=== PATIENT | male | born 1960 | race Caucasian/White ===

== ENCOUNTER 2018-12-01 11:13 | Inpatient (IN) | payer OTHER ==
[2018-12-01] MEDS ORDERED: morphine CARPU-JECT 4 MG/1 ML DISP.SYRIN IVPUSH ONE (12:11)
[2018-12-01] MEDS ORDERED: SODIUM CHLORIDE 0.9% 500 ML INFUS.BAG IV ONE (12:12)
--- NOTE | 2018-12-01 12:21 | PDOC ---
History of Present Illness - General Chief Complaint: Injury Stated Complaint: FALL, R/O FX Time Seen by Provider: 12/01/18 11:59 History Source: Patient Exam Limitations: No Limitations - History of Present Illness Initial Comments: 12/01/18 12:14 58YOM with unknown PMH (estranged from the medical system for more than 15 years ) who p/w right ankle injury sustained when he fell on the stairs while drinking EtOH early this morning at 2am. He notes having severe pain to the ankle (8/10 at rest and worse with movement). He has not been able to walk or bear weight since that time. He did not hit head head, hurt his neck, lose consciousness, or otherwise injure himself in any additional way as a result of the fall. He denies recent f/c/n/v/d/c, n/t/w, or other symptoms. Last PO intake was last night. He was BIBEMS who donned an ice pack. He has not taken medication for the pain. Past History - Past Medical History Allergies/Adverse Reactions: Allergies Allergy/AdvReac Type Severity Reaction Status Date / Time No Known Allergies Allergy Verified 12/01/18 12:00 Home Medications: Ambulatory Orders Hydrocodone/Acetaminophen [Hydrocodone-Acetamin 5-325 mg] 1 - 2 each PO Q6H #40 tablet MDD 6 12/02/18 Amlodipine Besylate [Norvasc -] 5 mg PO DAILY 30 Days #30 tablet 12/03/18 COPD: No - Suicide/Smoking/Psychosocial Hx Smoking History: Never smoked Hx Alcohol Use: Yes Review of Systems - Review of Systems Able to Perform ROS?: Yes Comments:: 12/01/18 12:21 GEN: no fever, chills, malaise, generalized weakness, or weight change HEENT: no ear pain, sore throat, vision change, or eye pain CV: no chest pain, palpitations, lightheadedness, syncope, or edema RESP: no cough, wheezing, or SOB GI: no abdominal pain, nausea, vomiting, diarrhea, constipation, or white/black/ bloody stool : no dysuria, hematuria, incontinence, retention, bleeding, or discharge MSK: right ankle pain/swelling/deformity, no neck/back pain, muscle weakness/ pain, or joint swelling/pain NEURO: no headache, seizure, vertigo, numbness, tingling, or focal weakness PSYCH: no substance use, no behavior change SKIN: no jaundice, no rash ROS otherwise negative except as noted in HPI *Physical Exam - Vital Signs Last Vital Signs Temp Pulse Resp BP Pulse Ox 98.6 F 84 18 163/101 H 100 12/01/18 12:00 12/01/18 12:00 12/01/18 12:00 12/01/18 12:00 12/01/18 12:00 - Physical Exam Comments: 12/01/18 12:18 GEN: appears a bit uncomfortable, accompanied by family, answers questions appropriately HEENT: no obvious facial deformity, no cephalohematoma, no scalp laceration, no raccoon eyes, no proptosis, PERRLA, EOMI without pain, no nasal septal hematoma , no obvious CSF rhinorrhea, no epistaxis, no jaw malocclusion, no loose teeth, no treadwell sign, no hemotympanum, no obvious CSF otorrhea CHEST WALL: no flail chest, no costal stepoff or deformity, no bruises or lesions CARDIOVASCULAR: regular rhythm, normal S1S2, no MGR, capillary refill <2 seconds RESPIRATORY: symmetric chest expansion on inspiration, no increased WOB, no cyanosis ABDOMEN: abdomen soft, nondistendedd, nontender, pelvis stable EXTREMITIES: right ankle with significant swelling and ecchymosis medially with bony deformity distally but without skin tinting, pain in medial malleolar zone , tenderness to edge of medial malleolus, inability to bear weight or walk, able to move toes distally and full digit strength, neurovascularly intact NECK&BACK: no neck or back hematoma, no midline vertebral tenderness C/T/L spine , no spinal step-off or deformity, no paraspinous ttp CTL spine NEURO: good rectal tone, no saddle anesthesia,CN II-XII grossly intact, 5/5 strength and intact sensation throughout : no blood at the urethral meatus, normal external genitalia, no CVA tenderness SKIN: warm and dry, no pallor, no additional lacerations except as noted in Extremity section, no abrasions Heart Score/ECG Review #1 Sinus rhythm, rate 97, normal axis and intervals, no ST-T changes ED Treatment Course - LABORATORY CBC & Chemistry Diagram: 12/03/18 06:50 12/03/18 06:50 - RADIOLOGY Radiology Studies Ordered: Category Date Time Status ANKLE & FOOT-RIGHT* [RAD] Stat Radiology 12/01/18 12:12 Ordered Medical Decision Making - Medical Decision Making 12/01/18 12:17 Pt p/w right ankle pain/swelling worsening since an injury to the area from falling on stairs, as well as ankle deformity. Initial Vital Signs Temp Pulse Resp BP Pulse Ox 98.6 F 84 18 163/101 H 100 12/01/18 12:00 12/01/18 12:00 12/01/18 12:00 12/01/18 12:00 12/01/18 12:00 Exam: As noted in in Physical Exam section. DDX IBNLT: fracture, dislocation, ankle sprain/strain, tendon or ligament rupture/tear, contusion, blood vessel injury, nerve injury, etc. W/U ordered: ankle/foot XR, labs as noted below, EKG TX ordered: Morphine, Ofirmev Laboratory Tests 12/01/18 12/01/18 12/01/18 12:30 12:30 12:30 WBC 9.8 RBC 5.36 Hgb 15.7 Hct 46.2 MCV 86.1 MCH 29.3 MCHC 34.0 RDW 14.0 Plt Count 194 MPV 9.8 Absolute Neuts (auto) 6.9 Neutrophils % 69.8 Lymphocytes % 24.1 Monocytes % 4.6 Eosinophils % 1.0 Basophils % 0.5 Nucleated RBC % 0 PT with INR 12.10 INR 1.03 PTT (Actin FS) 30.2 Sodium 140 Potassium 3.8 Chloride 107 Carbon Dioxide 22 Anion Gap 11 BUN 8 Creatinine 0.5 L Creat Clearance w eGFR 171.39 Random Glucose 129 H Calcium 8.2 L Total Bilirubin 0.2 AST 102 H ALT 130 H Alkaline Phosphatase 127 H Total Protein 8.4 H Albumin 3.8 Blood Type Antibody Screen 12/01/18 12:30 WBC RBC Hgb Hct MCV MCH MCHC RDW Plt Count MPV Absolute Neuts (auto) Neutrophils % Lymphocytes % Monocytes % Eosinophils % Basophils % Nucleated RBC % PT with INR INR PTT (Actin FS) Sodium Potassium Chloride Carbon Dioxide Anion Gap BUN Creatinine Creat Clearance w eGFR Random Glucose Calcium Total Bilirubin AST ALT Alkaline Phosphatase Total Protein Albumin Blood Type O POSITIVE Antibody Screen Negative 12/01/18 13:53 FOOT-RIGHT* Right foot and ankle: Ankle deformity. Pain. 4 views of the ankle and foot have been submitted. A widened mortise with medial malleolar fracture and distal fibular fracture. A posterior malleolar fracture is not appreciated. In the lateral view, there is widening of the joint space between the talus and tibia. There is calcaneal spurring. No other fractures are visualized. Impression: Fracture dislocation involving right ankle. Orthopedic follow-up needed. I spoke with [facility]ad who will come to the ED for ankle reduction. Patient will go to the OR tomorrow. 12/01/18 14:59 Conscious sedation achieved with ketamine while on monitor. Ankle reduced and splinted by Ortho OFE Prasad, myself assisting. Patient tolerated the procedure well, post-reduction films show improvement. The patient needs to go to OR tomorrow. Microblog sent to [facility] for admission. Blank Decision to Admit order is placed per ED protocol. On-call orthopedist consult order placed. *DC/Admit/Observation/Transfer Diagnosis at time of Disposition: Fall (on) (from) other stairs and steps, initial encounter Trimalleolar fracture of right ankle Qualifiers: Encounter type: initial encounter Fracture type: closed Qualified Code(s): S82.851A - Displaced trimalleolar fracture of right lower leg, initial encounter for closed fracture - Discharge Dispostion Disposition: HOME Condition at time of disposition: Good Decision to Admit order: Yes - Referrals - Patient Instructions - Post Discharge Activity
[2018-12-01] MEDS ORDERED: morphine SULFATE 4 MG/ML VIAL ONE (12:31)
[2018-12-01] MEDS ORDERED: ONDANSETRON 4 MG/2 ML VIAL IVPUSH ONE (12:51)
[2018-12-01 12:53] LABS: BASO % 0.5 % (0-2.0); HEMATOCRIT 46.2 % (35.4-49); HEMOGLOBIN 15.7 GM/dL (11.7-16.9); LYMPH % 24.1 % (8-40); MCH 29.3 pg (25.7-33.7); MEAN CELL VOLUME 86.1 fl (80-96); MEAN PLT VOLUME 9.8 fl (7.5-11.1); MONO % 4.6 % (3.8-10.2); NEUT % 69.8 % (42.8-82.8); PLATELET COUNT 194 K/MM3 (134-434); RBC 5.36 M/mm3 (4.00-5.60); WHITE BLOOD COUNT 9.8 K/mm3 (4.0-10.0)
--- NOTE | 2018-12-01 13:00 | PDOC ---
Attending Attestation - Resident Resident Name: Allison Freeman - ED Attending Attestation I have performed the following: I have examined & evaluated the patient, The case was reviewed & discussed with the resident, I agree w/resident's findings & plan, Exceptions are as noted - HPI HPI: 12/01/18 12:54 The patient is a 58 year old male with no known medial history who presents to the ED with pain to the right ankle s/p injury sustained when he twisted his ankle on the stairs while drinking EtOH early this morning at 2am. He reports 10 /10 pain to the ankle which is exacerbated with movement. He states he has not been able to bear weight since the injury. He denies head trauma or LOC. The patient denies chest pain, shortness of breath, headache and dizziness. The patient denies fever, chills, nausea, vomit, diarrhea and constipation. The patient denies dysuria, frequency, urgency and hematuria. Allergies: NKDA - Physicial Exam PE: 12/01/18 13:00 GENERAL: Awake, alert, and fully oriented, in no acute distress. HEAD: No signs of trauma EYES: PERRLA, EOMI, sclera anicteric, conjunctiva clear ENT: Auricles normal inspection, hearing grossly normal, nares patent, oropharynx clear without exudates. Moist mucosa NECK: Nontender, no stepoffs, Normal ROM, supple, no lymphadenopathy, JVD, or masses LUNGS: Breath sounds equal, clear to auscultation bilaterally. No wheezes, and no crackles HEART: Regular rate and rhythm, normal S1 and S2, no murmurs, rubs or gallops ABDOMEN: Soft, nontender, normoactive bowel sounds. No guarding, no rebound. No masses EXTREMITIES: + R ankle with significant deformity and effusion, ROM limited 2/2 pain, neurovascularly intact distally NEUROLOGICAL: Cranial nerves II through XII intact. 5/5 strength and sensation in all extremities, Normal speech, normal gait, normal cerebellar function SKIN: Warm, Dry, normal turgor, no rashes or lesions noted. - Medical Decision Making 12/01/18 13:01 58 M with R ankle deformity after twisting it. Likely ankle fx. No evidence of other injury on exam. - XR R ankle - Labs - Pain control 12/01/18 14:25 XR with valentina fx with dislocation Ortho consulted, OFE wiggins in ED to evaluate pt
[2018-12-01] MEDS ORDERED: ONDANSETRON 4 MG/2 ML VIAL ONE (13:10)
[2018-12-01 13:47] LABS: ALBUMIN 3.8 g/dl (3.4-5.0); ALK PHOS 127 U/L (45-117); ANION GAP 11 MMOL/L (8-16); BILIRUBIN,TOTAL 0.2 mg/dL (0.2-1); BLOOD UREA NITROGEN 8 mg/dL (7-18); CALCIUM 8.2 mg/dL (8.5-10.1); CHLORIDE 107 mmol/L (98-107); CO2 22 mmol/L (21-32); CREATININE 0.5 mg/dL (0.55-1.3); GLUCOSE,RANDOM 129 mg/dL (74-106); POTASSIUM 3.8 mmol/L (3.5-5.1); SGOT/AST 102 U/L (15-37); SGPT/ALT 130 U/L (13-61); SODIUM 140 mmol/L (136-145); TOT PROT 8.4 g/dl (6.4-8.2)
[2018-12-01 13:52] LABS: ACTIVATED PTT 30.2 SECONDS (25.2-36.5); INR 1.03 (0.83-1.09); PROTHROMBIN TIME (PATIENT) 12.1 SEC (9.7-13.0)
[2018-12-01] MEDS ORDERED: KETAMINE HCL 500 MG/10 ML VIAL ONE (14:31)
--- NOTE | 2018-12-01 15:07 | CON.ORTH ---
Consult Reason for Consultation:: right anklr fx/dl - Alcohol/Substance Use Hx Alcohol Use: Yes - Smoking History Smoking history: Never smoked Home Medications - Allergies Allergies/Adverse Reactions: Allergies Allergy/AdvReac Type Severity Reaction Status Date / Time No Known Allergies Allergy Verified 12/01/18 12:00 Physical Exam for Ortho Vital Signs: Vital Signs Temperature 98.6 F 12/01/18 12:00 Pulse Rate 84 12/01/18 12:00 Respiratory Rate 18 12/01/18 12:00 Blood Pressure 163/101 H 12/01/18 12:00 O2 Sat by Pulse Oximetry (%) 100 12/01/18 12:00 Labs: CBC, BMP 12/01/18 12:30 12/01/18 12:30 INR, PTT INR 1.03 (0.83-1.09) 12/01/18 12:30 - Lower Extremity Ankle: Yes: Right, Assymetrical, Deformity, Limited ROM, Pain, Swelling, Tenderness, Other (nvi) Imaging - Results X-ray: Image Reviewed Assessment/Plan 58YOM with unknown PMH (estranged from the medical system for more than 15 years ) who p/w right ankle injury sustained when he fell on the stairs while drinking EtOH early this morning at 2am. He notes having severe pain to the ankle (8/10 at rest and worse with movement). He has not been able to walk or bear weight since that time. He did not hit head head, hurt his neck, lose consciousness, or otherwise injure himself in any additional way as a result of the fall. He denies recent f/c/n/v/d/c, n/t/w, or other symptoms. a/p right ankle displaced valentina fx/dislocation Risks and benefits were d/w pt in detail OR tomorrow for right ankle ORIF closed reduction and splinting in ER NPO after midnight surgical clearance d/w Dr. Tejeda
[2018-12-01] MEDS ORDERED: KETAMINE HCL 200 MG/20 ML VIAL IVPUSH ONE (15:24)
[2018-12-01] MEDS ORDERED: NOREPINEPHRINE BITARTRATE 4 MG/4 ML ML IV ONE (16:18)
[2018-12-01] MEDS ORDERED: FOLIC ACID INJECTION - 1 MG, THIAMINE HCL 100 MG, MULTIVIT INJECTION ADULT 10 ML in SOD... IVPB ONE (16:45)
--- NOTE | 2018-12-01 16:46 | PN ---
Teaching Attending Note Name of Resident: Bay Strong ATTENDING PHYSICIAN STATEMENT I saw and evaluated the patient. I reviewed the resident's note and discussed the case with the resident. I agree with the resident's findings and plan as documented. SUBJECTIVE:58 yo M with no known PMH (has not seen PMD in 10+ years) presented after mechanical fall down the basement steps. pt states he has been drinking and that he "drink a lot" and thinks he just lost his balance. does not believe he struck his head. states he lives in the basement of his familys house. c/o R foot. denies CP, SOB, fever, chills, N/V/C/D, dizzyness, auditory/visual hallucinations. states he has never gone through DT's in the past but does not recall the last time he didnt drink. OBJECTIVE: Last Vital Signs Temp Pulse Resp BP Pulse Ox 98.6 F 92 H 18 183/101 H 97 12/01/18 12:00 12/01/18 16:08 12/01/18 16:08 12/01/18 16:08 12/01/18 16:08 General NAD, HEENT atraumatic, normocephalic, +nystagmus CV S1 S2 tachy Lungs CTA B/L no wheezing/rales/rhonchi Abdomen soft NT/ND obese, can not palpate liver edge Extremities R foot in soft cast, can wiggle toes. LLE no pedal edema good pulse , slight tremor with hands extended ASSESSMENT AND PLAN: 58 yo M with no known PMH (has not seen PMD in 10+ years) presented after mechanical fall down the basement steps and found to have a bimalleolar fracture 1. R ankle bimalleolar fracture- closed reduction in the ER and NPO tonight for ORIF in the am. further recommendations per ortho. complete bedrest at this time. pain control. PT eval afterwards. 2. acute transaminitis- likely due to ETOH. will check hepatitis panel. trend LFT. avoid hepatoxic medications 3. ETOH intoxication- currently intoxicated. high likelihood will require detox. will monitor for signs of withdrawal and then start librium. give banana bag. not a candidate for inpatient rehab when medically optimzied as patient does not have insurance. will need to provide with outpatient resources 4. DVT ppx- lovenox. hold tonights dose for pending surgery in the AM 5. spoke with family present at bedside. all questions answered. verbalized understanding and agrees. Pt does not have insurance and will not be a candidate for [facility] placement. CM notified. will also need to establish primary care prior to discharge
--- NOTE | 2018-12-01 18:01 | HP ---
CHIEF COMPLAINT: rt ankle pain s/p fall PCP: none HISTORY OF PRESENT ILLNESS: The patient is a 58 yo m w/ no PMH who comes into the ED c/o rt ankle pain and inability to stand on his right ankle s/p fall this afternoon. The patient states that he was drinking ETOH when he fell down a flight of stairs, injuring his ankle. Patient denies LOC, head trauma or pain in any other part of his body. The patient states that he drank approx. 10 shots and 20 beers yesterday because he was "tired." Typically, patient states that he drinks 2-3 shots per week. He denies ever having withdrawn from ETOH. Patient has not seen a doctor for several years. ER course was notable for: (1) XR ankle showing trimalleolar fx (2) dislocation reduced in ED w/ assistance of ortho PA (3) Ortho consult Recent Travel: none PAST MEDICAL HISTORY: none PAST SURGICAL HISTORY: none Social History: Smoking: none Alcohol: typically drinks Drugs: denies Family History: non-contributory Allergies No Known Allergies Allergy (Verified 12/01/18 12:00) HOME MEDICATIONS: REVIEW OF SYSTEMS CONSTITUTIONAL: Absent: fever, chills, diaphoresis, generalized weakness, malaise, loss of appetite, weight change HEENT: Absent: rhinorrhea, nasal congestion, throat pain, throat swelling, difficulty swallowing, mouth swelling, ear pain, eye pain, visual changes CARDIOVASCULAR: Absent: chest pain, syncope, palpitations, irregular heart rate, lightheadedness , peripheral edema RESPIRATORY: Absent: cough, shortness of breath, dyspnea with exertion, orthopnea, wheezing, stridor, hemoptysis GASTROINTESTINAL: Absent: abdominal pain, abdominal distension, nausea, vomiting, diarrhea, constipation, melena, hematochezia GENITOURINARY: Absent: dysuria, frequency, urgency, hesitancy, hematuria, flank pain, genital pain MUSCULOSKELETAL: Absent: myalgia, arthralgia, back pain, neck pain SKIN: Absent: rash, itching, pallor HEMATOLOGIC/IMMUNOLOGIC: Absent: easy bleeding, easy bruising, lymphadenopathy, frequent infections ENDOCRINE: Absent: unexplained weight gain, unexplained weight loss, heat intolerance, cold intolerance NEUROLOGIC: Absent: headache, focal weakness or paresthesias, dizziness, unsteady gait, seizure, mental status changes, bladder or bowel incontinence PSYCHIATRIC: Absent: anxiety, depression, suicidal or homicidal ideation, hallucinations. PHYSICAL EXAMINATION Vital Signs - 24 hr 12/01/18 12/01/18 12/01/18 12:00 14:35 14:55 Temperature 98.6 F Pulse Rate 84 Pulse Rate [ 103 H Apical] Pulse Rate [ 88 103 H Right Upper Arm ] Respiratory 18 16 Rate Respiratory 18 16 Rate [Right Upper Arm] Blood Pressure 163/101 H Blood Pressure 188/111 H [Right Arm] Blood Pressure 162/95 188/111 H [Right Upper Arm] O2 Sat by Pulse 100 99 Oximetry (%) O2 Sat by Pulse 100 99 Oximetry (%) [ Right Upper Arm ] 12/01/18 12/01/18 12/01/18 15:00 15:05 15:28 Temperature Pulse Rate Pulse Rate [ 98 H 93 H Apical] Pulse Rate [ 92 H Right Upper Arm ] Respiratory 13 13 Rate Respiratory 18 Rate [Right Upper Arm] Blood Pressure Blood Pressure 182/111 H 186/110 H [Right Arm] Blood Pressure 141/103 H [Right Upper Arm] O2 Sat by Pulse 100 98 Oximetry (%) O2 Sat by Pulse 95 Oximetry (%) [ Right Upper Arm ] 12/01/18 16:08 Temperature Pulse Rate Pulse Rate [ 92 H Apical] Pulse Rate [ Right Upper Arm ] Respiratory 18 Rate Respiratory Rate [Right Upper Arm] Blood Pressure Blood Pressure 183/101 H [Right Arm] Blood Pressure [Right Upper Arm] O2 Sat by Pulse 97 Oximetry (%) O2 Sat by Pulse Oximetry (%) [ Right Upper Arm ] GENERAL: Awake, alert, and fully oriented, in no acute distress. HEAD: Normal with no signs of trauma. LUNGS: Breath sounds equal, clear to auscultation bilaterally. No wheezes, and no crackles. No accessory muscle use. HEART: Regular rate and rhythm, normal S1 and S2 without murmur, rub or gallop. ABDOMEN: Soft, nontender, not distended, normoactive bowel sounds, no guarding, no rebound, no masses. No hepatomegaly or splenomegaly. LOWER EXTREMITIES: 2+ pulses, warm, well-perfused. No calf tenderness. No peripheral edema. RLE wrapped in soft splint from toes to midway up calf. NEUROLOGICAL: Cranial nerves II-X intact. Normal speech. Patient neurovascularly intact over both LE. Sensation preserved SKIN: Warm, dry, normal turgor, no rashes or lesions noted, normal capillary refill. Laboratory Results - last 24 hr 12/01/18 12/01/18 12/01/18 12:30 12:30 12:30 WBC 9.8 RBC 5.36 Hgb 15.7 Hct 46.2 MCV 86.1 MCH 29.3 MCHC 34.0 RDW 14.0 Plt Count 194 MPV 9.8 Absolute Neuts (auto) 6.9 Neutrophils % 69.8 Lymphocytes % 24.1 Monocytes % 4.6 Eosinophils % 1.0 Basophils % 0.5 Nucleated RBC % 0 PT with INR 12.10 INR 1.03 PTT (Actin FS) 30.2 Sodium 140 Potassium 3.8 Chloride 107 Carbon Dioxide 22 Anion Gap 11 BUN 8 Creatinine 0.5 L Creat Clearance w eGFR 171.39 Random Glucose 129 H Calcium 8.2 L Total Bilirubin 0.2 AST 102 H ALT 130 H Alkaline Phosphatase 127 H Total Protein 8.4 H Albumin 3.8 Blood Type Antibody Screen 12/01/18 12:30 WBC RBC Hgb Hct MCV MCH MCHC RDW Plt Count MPV Absolute Neuts (auto) Neutrophils % Lymphocytes % Monocytes % Eosinophils % Basophils % Nucleated RBC % PT with INR INR PTT (Actin FS) Sodium Potassium Chloride Carbon Dioxide Anion Gap BUN Creatinine Creat Clearance w eGFR Random Glucose Calcium Total Bilirubin AST ALT Alkaline Phosphatase Total Protein Albumin Blood Type O POSITIVE Antibody Screen Negative ASSESSMENT/PLAN: The patient is a 58 yo m w/ no PMH who comes into the ED c/o right ankle pain s/ p fall found to have right ankle trimalleolar fx. #Rt ankle trimalleolar fx -seen by ortho in ED; Fx reduced -for ORIF in AM -pain control: -Percocet 5 pn 1-5 -Percocet 10 pn 6-10 #ETOH abuse -baseline amount of drinking unclear -monitor for withdrawal ssx -initiate detox protocol of patient begins to withdraw #elevated BP -possibly 2/2 pain -patient may have HTN since he does not follow with a PCP -will begin Norvasc 5mg daily in the AM #FEN -no fluids indicated -lytes WNL, replete PRN -NPO past midnight for ORIF in AM #Prophy -cannot place SCDs given ankle injury -holding AC due to ORIF in AM #Dispo -admit med surg Visit type - Emergency Visit Emergency Visit: Yes ED Registration Date: 12/01/18 Care time: The patient presented to the Emergency Department on the above date and was hospitalized for further evaluation of their emergent condition. - New Patient This patient is new to me today: Yes Date on this admission: 12/02/18 - Critical Care Critical Care patient: No
[2018-12-01] MEDS ORDERED: ACETAMINOPHEN 325 MG TABLET (FP) PO PRN ×2 (18:02→18:03)
[2018-12-01] MEDS ORDERED: oxyCODONE HCL 5 MG TABLET PO PRN ×2 (18:02→18:03)
[2018-12-01 19:04] VITALS: BMI 25.5
--- NOTE | 2018-12-01 21:49 | EKG ---
Test Reason : Blood Pressure : / mmHG Vent. Rate : 097 BPM Atrial Rate : 097 BPM P-R Int : 142 ms QRS Dur : 080 ms QT Int : 360 ms P-R-T Axes : 033 033 030 degrees QTc Int : 457 ms POOR DATA QUALITY, INTERPRETATION MAY BE ADVERSELY AFFECTED NORMAL SINUS RHYTHM NORMAL ECG NO PREVIOUS ECGS AVAILABLE Confirmed by MD VALENTINA, PARIS ([id number]) on 12/01/2018 9:49:10 PM Referred By: Confirmed By:PARIS MONTGOMERY MD
[2018-12-02 07:25] LABS: HEMATOCRIT 41.4 % (35.4-49); HEMOGLOBIN 14.3 GM/dL (11.7-16.9); MCH 29.8 pg (25.7-33.7); MCHC 34.5 g/dl (32.0-35.9); MEAN CELL VOLUME 86.5 fl (80-96); MEAN PLT VOLUME 9.9 fl (7.5-11.1); PLATELET COUNT 171 K/MM3 (134-434); RBC 4.79 M/mm3 (4.00-5.60); RDW 14.1 % (11.9-15.9); WHITE BLOOD COUNT 10.9 K/mm3 (4.0-10.0)
[2018-12-02 07:36] LABS: ANION GAP 6 MMOL/L (8-16); BLOOD UREA NITROGEN 7 mg/dL (7-18); CALCIUM 8.1 mg/dL (8.5-10.1); CHLORIDE 107 mmol/L (98-107); CO2 30 mmol/L (21-32); CREATININE 0.7 mg/dL (0.55-1.3); GLUCOSE,RANDOM 117 mg/dL (74-106); MAGNESIUM 2.2 mg/dL (1.8-2.4); PHOSPHOROUS 1.8 mg/dL (2.5-4.9); POTASSIUM 3.9 mmol/L (3.5-5.1); SODIUM 142 mmol/L (136-145)
[2018-12-02 08:26] LABS: INR 1.11 (0.83-1.09); PROTHROMBIN TIME (PATIENT) 13.1 SEC (9.7-13.0)
[2018-12-02 08:29] LABS: ACTIVATED PTT 36.5 SECONDS (25.2-36.5)
[2018-12-02] MEDS ORDERED: POTASSIUM PHOSPHATE 30 MM in SODIUM CHLORIDE 500 ML IVPB ONE (09:00)
[2018-12-02] MEDS ORDERED: amLODIPine BESYLATE 5 MG TABLET (FP) PO SCH (10:00)
[2018-12-02] MEDS ORDERED: LACTATED RINGERS SOLUTION 1,000 ML IV SCH ×2 (10:45→13:46)
[2018-12-02] MEDS ORDERED: BUPIVACAINE HCL/PF 0.5% (5MG/ML) 10 ML VIAL ONE ×2 (11:14→12:00)
[2018-12-02] MEDS ORDERED: BUPIVACAINE LIPOSOME/PF (EXPAREL) 266 MG/20 ML VIAL ONE (11:14)
[2018-12-02] MEDS ORDERED: MIDAZOLAM HCL 2 MG/2 ML SINGLE DOSE VIAL ONE ×2 (11:16)
[2018-12-02] MEDS ORDERED: ceFAZolin SODIUM 1 GM VIAL IVPB ONE (12:15)
[2018-12-02] MEDS ORDERED: ceFAZolin SODIUM 1 GM VIAL ONE (12:21)
[2018-12-02] MEDS ORDERED: DEXAMETHASONE SOD PHOSPHATE 4 MG/1 ML VIAL ONE (12:23)
[2018-12-02] MEDS ORDERED: ONDANSETRON 4 MG/2 ML VIAL ONE (12:26)
[2018-12-02] MEDS ORDERED: ePHEDrine SULFATE 50 MG/1 ML AMPULE ONE (12:48)
--- NOTE | 2018-12-02 13:27 | OP ---
Operative Note - Note: Operative Date: 12/02/18 Pre-Operative Diagnosis: displaced right ankle bimalleolar fracture Operation: right ankle bimalleolar ORIF Implants: [place] low profile, titanium, distal fibular plate, screws, 1 x connulated screw with washer 50mm Post-Operative Diagnosis: Same as Pre-op Surgeon: Gonzales Tejeda Check And Transfer Beader: Osmar Weaver Anesthesiologist/INSULATION BOARD COATER OPERATOR: Yuval Michael Anesthesia: General, Local Estimated Blood Loss (mls): 0 Drains, Volume Out (mls): 0 Blood Volume Replaced (mls): 0 Fluid Volume Replaced (mls): 1,000 Operative Report Dictated: Yes
[2018-12-02] MEDS ORDERED: oxyCODONE HCL 5 MG TABLET PO PRN ×2 (13:46)
[2018-12-02] MEDS ORDERED: ACETAMINOPHEN 325 MG TABLET (FP) PO PRN ×2 (13:46)
--- NOTE | 2018-12-02 14:39 | OP ---
DATE OF OPERATION: 12/02/2018 PREOPERATIVE DIAGNOSIS: Right ankle bimalleolar ankle fracture. POSTOPERATIVE DIAGNOSIS: Right ankle bimalleolar ankle fracture. PROCEDURE: Right ankle bimalleolar open reduction, internal fixation. SURGEON: Roberto Gay MD MANAGER EDUCATIONAL: OFE Ta ANESTHESIOLOGIST: MARY CARMEN Muñiz ANESTHESIA: Peripheral block with LMA anesthesia. DRAINS: None. COMPLICATIONS: None. SPECIMEN: None. BLOOD LOSS: Minimal. BLOOD GIVEN: None. FLUID REPLACEMENT: Plasma-Lyte, 1000 mL. This patient is a 58-year-old male with a preoperative diagnosis of a displaced bimalleolar right ankle fracture. After understanding the potential risks, complications, alternatives and benefits of surgery versus nonsurgical treatment the patient elected to undergo this procedure. The patient was brought to the operating room. Peripheral IV placed. IV sedation given. IV Ancef 2 g were given. A right distal peripheral block was performed. LMA anesthesia was induced. The right lower extremity was prepped and draped in a sterile fashion, elevated, exsanguinated with an Esmarch bandage. Tourniquet inflated to 275 mmHg. A lateral incision was made over the distal fibula with a No. 15 scalpel blade. Hemostasis was achieved with the Bovie cautery. Dissection done down to the periosteum of the distal fibula. Periosteal dissection was done. Irrigation and a small curet were used clean out the fracture site of hematoma and soft tissue debris including some periosteum. I was then able to do a reduction with an alligator forceps. X-rays were taken to document excellent position of the distal fibula as well as the ankle mortise. Next I put in a lag screw in the standard fashion. This was a 3.5-mm diameter screw that was 18 mm in length perpendicular to the fracture site, held the distal fibula well. The alligator clamps were removed. X-rays were taken. A 4-hole distal low-profile titanium Wayne plate was placed on to the distal fibula. It was precontoured. It was held in place with 2 K-wires. X-rays were taken. It looked quite good. Therefore, in the standard fashion first I put in 4 distal screws all unicortical and locking and then 1 proximal screw which was bicortical and nonlocking in compression mode. X-rays were taken and they all looked quite good. The screw was 14 mm in length. I then put in 2 additional bicortical proximal screws that were 12 and 12 mm in length. These were locking screws. X-rays were taken. Next our attention turned to the medial side. An incision was made with a No. 15-scalpel blade. Subcutaneous hemostasis achieved with the Bovie cautery. Dissection done down to the distal medial malleolus. The fracture was a little unusual in the sense that the fracture line was going from an anterior-superior to a posterior-inferior position and was exactly 90 degrees to the typical fracture pattern. Therefore, to get the screw as perpendicular to the fracture site as possible I had to bring my hand all the way over the foot and just as far as I could until I was hitting up against the navicular. A partially threaded guidewire was placed through the fracture fragment across the fracture site into the tibia. Multiple x-rays were taken. It looked quite good and not in the ankle joint. I then measured a 50-mm screw. It was overdrilled distally and I put in a partially threaded cannulated 4.0, 50-mm screw with a washer. It brought the medial malleolus down quite nicely. The pin and clamp were removed that held it in place. X-rays were taken in multiple oblique as well as the AP and lateral planes. Overall, it was quite good. Both incisions were irrigated and washed out. The fascia closed over the plate laterally with 2-0 Vicryl. The deep dermal layer closed with 2-0 Vicryl. Final skin reapproximation was done with danitza. The area was then washed and dried, covered with Xeroform gauze, 4 x 4 gauze, Webril and a posterior splint. Ortho-Glass splint was applied, wrapped with 2 Sohail bandages. The tourniquet was taken down after a total tourniquet time of about 50 minutes. There were no complications during the case. The patient tolerated the procedure quite well and was brought to the ambulatory recovery room in stable condition. ROBERTO GAY M.D. [id number]
--- NOTE | 2018-12-02 17:48 | PN ---
Physical Exam: SUBJECTIVE: Patient seen and examined at bedside. POD0 R ankle bimalleolar ORIF. no complaints or complications. denies fever, chills, cp, sob, n/v/d OBJECTIVE: Vital Signs Period Temp Pulse Resp BP Sys/Wilson Pulse Ox Last 24 Hr 97.9 F-98.8 F 68-86 11-20 111-172/70-96 96-99 GENERAL: Awake, alert, and fully oriented, in no acute distress. HEAD: Normal with no signs of trauma. LUNGS: Breath sounds equal, clear to auscultation bilaterally. No wheezes, and no crackles. No accessory muscle use. HEART: Regular rate and rhythm, normal S1 and S2 without murmur, rub or gallop. ABDOMEN: Soft, nontender, not distended, normoactive bowel sounds, no guarding, no rebound, no masses. No hepatomegaly or splenomegaly. EXTREMITIES: 2+ pulses, warm, well-perfused. No tremors. No calf tenderness. No peripheral edema. RLE wrapped in bandage from toes to midway up calf. NEUROLOGICAL: Cranial nerves II-X intact. Normal speech. Patient neurovascularly intact over both LE. Sensation preserved SKIN: Warm, dry, normal turgor, no rashes or lesions noted, normal capillary refill. Laboratory Results - last 24 hr 12/01/18 12/02/18 12/02/18 18:00 07:00 07:00 WBC 10.9 H RBC 4.79 Hgb 14.3 Hct 41.4 MCV 86.5 MCH 29.8 MCHC 34.5 RDW 14.1 Plt Count 171 MPV 9.9 PT with INR 13.10 H INR 1.11 H PTT (Actin FS) 36.5 Sodium Potassium Chloride Carbon Dioxide Anion Gap BUN Creatinine Creat Clearance w eGFR Random Glucose Calcium Phosphorus Magnesium Blood Type O POSITIVE 12/02/18 07:00 WBC RBC Hgb Hct MCV MCH MCHC RDW Plt Count MPV PT with INR INR PTT (Actin FS) Sodium 142 Potassium 3.9 Chloride 107 Carbon Dioxide 30 Anion Gap 6 L BUN 7 Creatinine 0.7 Creat Clearance w eGFR 116.24 Random Glucose 117 H Calcium 8.1 L Phosphorus 1.8 L Magnesium 2.2 Blood Type Active Medications Generic Name Dose Route Start Last Admin Trade Name Freq PRN Reason Stop Dose Admin Acetaminophen 325 mg 12/02/18 13:46 Tylenol - PO Q6H PRN PAIN 1-5 Acetaminophen 650 mg 12/02/18 13:46 Tylenol - PO Q6H PRN PAIN 6-10 Amlodipine Besylate 5 mg 12/03/18 10:00 Norvasc - PO DAILY CHRISTOPHE Fentanyl 50 mcg 12/02/18 13:46 Sublimaze Injection - IVPUSH [id number] PRN PAIN-PACU ORDER X 4 DOSES ONLY Cefazolin Sodium 1 gm in 50 mls @ 100 mls/hr 12/02/18 19:00 Ancef 1 Gm Premixed Ivpb - IVPB 12/03/18 02:29 Q8H-IV CHRISTOPHE Lactated Ringer's 1,000 mls @ 125 mls/hr 12/02/18 13:46 12/02/18 14:00 Lactated Ringers Solution IV 150 mls ASDIR CHRISTOPHE Administration Oxycodone HCl 5 mg 12/02/18 13:46 Roxicodone - PO Q6H PRN PAIN 1-5 Oxycodone HCl 10 mg 12/02/18 13:46 Roxicodone - PO Q6H PRN PAIN 6-10 ASSESSMENT/PLAN: 58 yo m w/ no PMH (has not seen PMD in 10+ years) who comes into the ED c/o right ankle pain s/p fall found to have right ankle trimalleolar fx. #Rt ankle trimalleolar fx now POD0 R ankle bimalleolar ORIF. -ortho consult -pain control: -Percocet 5 pn 1-5 -Percocet 10 pn 6-10 -tylenol PO -post op cefazolin -PT eval -Incentive spirometer #ETOH abuse -s/p banana bag -baseline amount of drinking unclear -monitor for withdrawal ssx -initiate detox protocol if patient begins to withdraw #acute transaminitis- likely due to ETOH. will check hepatitis panel. trend LFTs Abd U/S #elevated BP - ctl -possibly 2/2 pain -patient may have HTN since he does not follow with a PCP -c/w Norvasc 5mg daily #FEN -LR 125cc/hr -lytes WNL, replete PRN -regular #ppx -SCDs for now, resume Lovenox per Surgery #Dispo -med surg -Pt does not have insurance and will not be a candidate for [facility] placement. CM notified. will also need to establish primary care prior to discharge Visit type - Emergency Visit Emergency Visit: Yes ED Registration Date: 12/01/18 Care time: The patient presented to the Emergency Department on the above date and was hospitalized for further evaluation of their emergent condition. - New Patient This patient is new to me today: Yes Date on this admission: 12/02/18 - Critical Care Critical Care patient: No
--- NOTE | 2018-12-02 18:40 | PN ---
Teaching Attending Note Name of Resident: Vinay Levine ATTENDING PHYSICIAN STATEMENT I saw and evaluated the patient. I reviewed the resident's note and discussed the case with the resident. I agree with the resident's findings and plan as documented. SUBJECTIVE: Mild discomfort RLE post-op. No fever/chills. No chest pain/palps. No nausea/vomiting. OBJECTIVE: Afebrile, Hemodynamically Stable. Last Vital Signs Temp Pulse Resp BP Pulse Ox 98.5 F 80 18 146/96 98 12/02/18 15:16 12/02/18 15:16 12/02/18 15:16 12/02/18 15:16 12/02/18 15:16 HEENT - Atraumatic, Normocephalic. Heart - S1, S2, Lungs - clear to auscultation Abdomen - Soft, non-tender. Extremities - RLE immobilized. Neurovascularly intact. Laboratory Results - last 24 hr 12/01/18 12/02/18 12/02/18 18:00 07:00 07:00 WBC 10.9 H RBC 4.79 Hgb 14.3 Hct 41.4 MCV 86.5 MCH 29.8 MCHC 34.5 RDW 14.1 Plt Count 171 MPV 9.9 PT with INR 13.10 H INR 1.11 H PTT (Actin FS) 36.5 Sodium Potassium Chloride Carbon Dioxide Anion Gap BUN Creatinine Creat Clearance w eGFR Random Glucose Calcium Phosphorus Magnesium Blood Type O POSITIVE 12/02/18 07:00 WBC RBC Hgb Hct MCV MCH MCHC RDW Plt Count MPV PT with INR INR PTT (Actin FS) Sodium 142 Potassium 3.9 Chloride 107 Carbon Dioxide 30 Anion Gap 6 L BUN 7 Creatinine 0.7 Creat Clearance w eGFR 116.24 Random Glucose 117 H Calcium 8.1 L Phosphorus 1.8 L Magnesium 2.2 Blood Type Current Medications Generic Name Dose Route Start Last Admin Trade Name Freq PRN Reason Stop Dose Admin Acetaminophen 325 mg 12/02/18 13:46 Tylenol - PO Q6H PRN PAIN 1-5 Acetaminophen 650 mg 12/02/18 13:46 Tylenol - PO Q6H PRN PAIN 6-10 Amlodipine Besylate 5 mg 12/03/18 10:00 Norvasc - PO DAILY CHRISTOPHE Fentanyl 50 mcg 12/02/18 13:46 Sublimaze Injection - IVPUSH [id number] PRN PAIN-PACU ORDER X 4 DOSES ONLY Cefazolin Sodium 1 gm in 50 mls @ 100 mls/hr 12/02/18 19:00 Ancef 1 Gm Premixed Ivpb - IVPB 12/03/18 02:29 Q8H-IV CHRISTOPHE Lactated Ringer's 1,000 mls @ 125 mls/hr 12/02/18 13:46 12/02/18 14:00 Lactated Ringers Solution IV 150 mls ASDIR CHRISTOPHE Administration Oxycodone HCl 5 mg 12/02/18 13:46 Roxicodone - PO Q6H PRN PAIN 1-5 Oxycodone HCl 10 mg 12/02/18 13:46 Roxicodone - PO Q6H PRN PAIN 6-10 Home Medications Medication Instructions Recorded Hydrocodone/Acetaminophen 1 - 2 each PO Q6H #40 tablet MDD 6 12/02/18 [Hydrocodone-Acetamin 5-325 mg] ASSESSMENT/PLAN: 58 year old male with history of alcohol excess, no significant PMH, presented with RLE pain s/p mechanical fall, found to have bimalleolar fracture. 1. R Bi-malleolar fracture s/p closed reduction in ED, currently POD 0 s/p ORIF. Comfortable post-op. PT. Oxycodone analgesia. 2. Elevated Tramsaminases sec to alcohol excess, possibel Alcoholic Hepatitis - Abdominal US requested. 3. History of Alcohol Excess - Counselled. No evidence of alcohol withdrawal. Will monitor. 4. Uncontrolled BP, possibly undiagnosed HTN versus response to pain - started on Norvasc. Will monitor. DVT Px - Lovenox SQ
[2018-12-02] MEDS: CEFAZOLIN 1 GM/D5W 1 GM/50 ML BAG IVPB SCH (18:42)
[2018-12-02] MEDS: ENOXAPARIN NA (PORCINE) 40 MG/0.4 ML DISP.SYRIN SQ SCH (18:58)
[2018-12-02] MEDS ORDERED: CEFAZOLIN 1 GM/D5W 1 GM/50 ML BAG IVPB SCH (19:00)
[2018-12-02] MEDS: MULTIVITAMINS (DAILY MVI) TABLET (FP) PO SCH (19:41)
[2018-12-02] MEDS: THIAMINE HCL 100 MG TABLET (FP) PO SCH (19:41)
[2018-12-02] MEDS: FOLIC ACID 1 MG TABLET (FP) PO SCH (19:41)
[2018-12-03] MEDS: CEFAZOLIN 1 GM/D5W 1 GM/50 ML BAG IVPB SCH (02:54)
[2018-12-03 07:40] LABS: BASO % 0.2 % (0-2.0); HEMATOCRIT 42.8 % (35.4-49); HEMOGLOBIN 13.8 GM/dL (11.7-16.9); LYMPH % 15.4 % (8-40); MCH 27.6 pg (25.7-33.7); MCHC 32.4 g/dl (32.0-35.9); MEAN CELL VOLUME 85.4 fl (80-96); MEAN PLT VOLUME 9.8 fl (7.5-11.1); MONO % 8.7 % (3.8-10.2); NEUT % 75.7 % (42.8-82.8); PLATELET COUNT 173 K/MM3 (134-434); RBC 5.01 M/mm3 (4.00-5.60); RDW 13.7 % (11.9-15.9); WHITE BLOOD COUNT 14.9 K/mm3 (4.0-10.0)
[2018-12-03 08:00] LABS: ALBUMIN 3.5 g/dl (3.4-5.0); ALK PHOS 98 U/L (45-117); ANION GAP 8 MMOL/L (8-16); BILIRUBIN,TOTAL 0.6 mg/dL (0.2-1); BLOOD UREA NITROGEN 10 mg/dL (7-18); CALCIUM 8.8 mg/dL (8.5-10.1); CHLORIDE 106 mmol/L (98-107); CO2 28 mmol/L (21-32); CREATININE 0.7 mg/dL (0.55-1.3); GLUCOSE,RANDOM 120 mg/dL (74-106); MAGNESIUM 2.6 mg/dL (1.8-2.4); PHOSPHOROUS 2.9 mg/dL (2.5-4.9); POTASSIUM 3.8 mmol/L (3.5-5.1); SGOT/AST 31 U/L (15-37); SGPT/ALT 60 U/L (13-61); SODIUM 142 mmol/L (136-145); TOT PROT 7.8 g/dl (6.4-8.2)
--- NOTE | 2018-12-03 08:55 | PN ---
Progress Note (short form) - Note Progress Note: Ortho Pt seen and examined s/p right ankle orif pod #1- doing well Selected Entries 12/03/18 05:54 Temperature 98.0 F Pulse Rate 82 Respiratory 20 Rate Blood Pressure 137/64 Laboratory Tests 12/03/18 06:50 WBC 14.9 H Hgb 13.8 Hct 42.8 Plt Count 173 splint c/d/i, nvi a/p NWB with crutches PT eval for crutch training d/c home today f/u in the office in 10-14 days- call for appt
[2018-12-03] MEDS: ENOXAPARIN NA (PORCINE) 40 MG/0.4 ML DISP.SYRIN SQ SCH (09:32)
[2018-12-03] MEDS: MULTIVITAMINS (DAILY MVI) TABLET (FP) PO SCH (09:33)
[2018-12-03] MEDS: FOLIC ACID 1 MG TABLET (FP) PO SCH (09:33)
[2018-12-03] MEDS: THIAMINE HCL 100 MG TABLET (FP) PO SCH (09:34)
[2018-12-03] MEDS ORDERED: amLODIPine BESYLATE 5 MG TABLET (FP) PO SCH (10:00)
--- NOTE | 2018-12-03 11:43 | DS ---
Physical Exam: SUBJECTIVE: Patient seen and examined at bedside. POD1 R ankle bimalleolar ORIF. no complaints or complications. denies fever, chills, cp, sob, n/v/d. ambulating well w/ PT w/ crutches OBJECTIVE: Vital Signs Period Temp Pulse Resp BP Sys/Wilson Pulse Ox Last 24 Hr 97.9 F-98.7 F 68-82 11-20 111-150/64-96 96-99 PHYSICAL EXAM GENERAL: Awake, alert, and fully oriented, in no acute distress. CIWA 0 HEAD: Normal with no signs of trauma. LUNGS: Breath sounds equal, clear to auscultation bilaterally. No wheezes, and no crackles. No accessory muscle use. HEART: Regular rate and rhythm, normal S1 and S2 without murmur, rub or gallop. ABDOMEN: Soft, nontender, not distended, normoactive bowel sounds, no guarding, no rebound, no masses. No hepatomegaly or splenomegaly. EXTREMITIES: 2+ pulses, warm, well-perfused. No tremors. No calf tenderness. No peripheral edema. RLE wrapped in bandage from toes to midway up calf. NEUROLOGICAL: Cranial nerves II-X intact. Normal speech. Patient neurovascularly intact over both LE. Sensation preserved SKIN: Warm, dry, normal turgor, no rashes or lesions noted, normal capillary refill. LABS Laboratory Results - last 24 hr 12/03/18 12/03/18 06:50 06:50 WBC 14.9 H RBC 5.01 Hgb 13.8 Hct 42.8 MCV 85.4 MCH 27.6 MCHC 32.4 RDW 13.7 Plt Count 173 MPV 9.8 Absolute Neuts (auto) 11.3 H Neutrophils % 75.7 Lymphocytes % 15.4 D Monocytes % 8.7 D Eosinophils % 0.0 D Basophils % 0.2 Nucleated RBC % 0 Sodium 142 Potassium 3.8 Chloride 106 Carbon Dioxide 28 Anion Gap 8 BUN 10 Creatinine 0.7 Creat Clearance w eGFR 116.24 Random Glucose 120 H Calcium 8.8 Phosphorus 2.9 Magnesium 2.6 H Total Bilirubin 0.6 AST 31 ALT 60 Alkaline Phosphatase 98 Total Protein 7.8 Albumin 3.5 HOSPITAL COURSE: Date of Admission:12/01/18 Date of Discharge: 12/03/18 58 yo m w/ no PMH (has not seen PMD in 10+ years) who comes into the ED c/o right ankle pain s/p fall found to have right ankle trimalleolar fx. #Admitted for inability to ambulate 2/2 Rt ankle trimalleolar fx (per XR imaging ) s/p fall while drinking ETOH, and now POD1 R ankle bimalleolar ORIF. ortho consulted (Nikhil). Ankle reduced and splinted in ED. pain ctl given, and pt went for ORIF and now POD1, w/ no noted complications. pt seen by PT and ambulated well w/ crutch training. pt would benefit from outpt PT and will f/u w / ortho office in 10-14 days. #ETOH abuse - s/p banana bag, CIWA 0, and no signs or sxs of withdrawal during hospital course. pt would benefit from ETOH rehab. pt counseled on negative effects of alcohol and encouraged to quit and to enlist in AA #acute alcoholic hepatits w/ transaminitis- resolved, LFTs have normalized #elevated BP, HTN? - now ctl w/ norvasc 5mg -possibly 2/2 pain -patient may have HTN since he does not follow with a PCP -will c/w Norvasc 5mg daily at dc -Pt does not have insurance and will not be a candidate for [facility] placement. CM notified. -pt referred to clinic w/ Dr. Arias to establish PCP care Pt stable and ready for dc w/ appropriate f/u Minutes to complete discharge: 37 Discharge Summary Reason For Visit: TRIMALLELOR FX OF RIGHT ANKLE,FALL OTHER STAIRS Current Active Problems Fall (on) (from) other stairs and steps, initial encounter (Acute) Trimalleolar fracture of right ankle (Acute) Condition: Good - Instructions Diet, Activity, Other Instructions: you came in because you fell and were found to have a right ankle fracture. you were seen by orthopedist Dr. Tejeda and went for surgery. surgery was done without complication. we noticed that your blood pressure was high and so we gave you a blood pressure medicine called norvasc. you may have high blood pressure. please follow up with your primary care physician within 1 week to monitor your blood pressure and see what other medicines you may need. In the meantime please continue taking norvasc 5mg once a day Please decrease the amount of salt in your diet. Please monitor and record your blood pressure at home and bring these results to your primary care physician Please stop drinking alcohol as excessive drinking puts you at risk for liver cirrhosis, liver cancer, heart attacks, strokes, and this . If you do continue to drink please do not stop drinking abruptly as this can cause you to go into withdrawals and delerium tremens and can result in . we recommend that you enlist in rehab for alcohol and alcohol anonymous support group please follow up with your primary care physician within 1 week. If you do not have a primary care physician, we can refer you to the clinic to see Dr Arias. please follow up with orthopedist Dr. Tejeda within 10-14 days - call for appointment If you experience any chest pain, shortness of breath, fever, hallucinations, excessive sweats, seizures, please call 911 or go to the ER. Dr. Tejeda has left you detailed discharge instructions and follow up Post-Op Instruction Sheet - Non-weight bearing with crutches - Strict elevation. - Keep your dressing clean and dry. - If you develop numbness or swelling in your foot or leg, or if your bandage feels too tight, unwrap the elastic bandage and re-wrap it loosely. If the sensations persist , please call the office. - To help control pain, you have been prescribed a narcotic pain medication. Take 1-2 tablets every 6 hours as needed for pain. - Keeping the leg elevated may help control inflammation. Do this by placing a pillow under the ankle. DO NOT ever place a pillow or anything else directly behind your knee. You may bend your knee, but do not stop it from straightening out by putting anything under the knee. - Please call the office to make an appointment for 1 week after surgery. Your dressing will be changed at that time. We will then make plans for you to start Physical Therapy. - Please call the office at [phone] if there are any questions or concerns. Low-grade fevers are normal for the first 2-3 days. They should be treated with deep breathing, coughing and fluids. Tylenol may be used instead of the pain medication for fevers. If there is a fever over 101.3 F after 48 hours or increased wound drainage, please call the office. Referrals: Gilmer Arias MD [Staff Physician] - 1 Week Gonzales Tejeda MD [Staff Physician] - 1 Week Disposition: HOME - Home Medications Comprehensive Discharge Medication List: Ambulatory Orders Hydrocodone/Acetaminophen [Hydrocodone-Acetamin 5-325 mg] 1 - 2 each PO Q6H #40 tablet MDD 6 12/02/18 Amlodipine Besylate [Norvasc -] 5 mg PO DAILY 30 Days #30 tablet 12/03/18 This patient is new to me today: Yes Date on this admission: 12/03/18 Emergency Visit: Yes ED Registration Date: 12/01/18 Care time: The patient presented to the Emergency Department on the above date and was hospitalized for further evaluation of their emergent condition. Critical Care patient: No - Discharge Referral [facility]erred to [facility] Med P.C.: No
[2018-12-03 11:46] VITALS: BP 139/87; PULSE 95; TEMP 99.1
--- NOTE | 2018-12-03 14:49 | PN ---
Teaching Attending Note Name of Resident: Vinay Levine ATTENDING PHYSICIAN STATEMENT I saw and evaluated the patient. I reviewed the resident's note and discussed the case with the resident. I agree with the resident's findings and plan as documented. SUBJECTIVE: Mild ongoing discomfort RLE post-op. No fever/chills. No chest pain/ palps. No nausea/vomiting. OBJECTIVE: Afebrile, Hemodynamically Stable. Mobilizing well with crutches. Last Vital Signs Temp Pulse Resp BP Pulse Ox 99.1 F 95 H 16 139/87 95 12/03/18 09:15 12/03/18 09:15 12/03/18 09:15 12/03/18 09:15 12/03/18 09:00 Heart - S1, S2, RRR Lungs - clear to auscultation Abdomen - Soft, non-tender. Extremities - RLE immobilized/cast. Neurovascularly intact. Current Medications Generic Name Dose Route Start Last Admin Trade Name Freq PRN Reason Stop Dose Admin Acetaminophen 325 mg 12/02/18 13:46 Tylenol - PO Q6H PRN PAIN 1-5 Acetaminophen 650 mg 12/02/18 13:46 Tylenol - PO Q6H PRN PAIN 6-10 Amlodipine Besylate 5 mg 12/03/18 10:00 12/03/18 09:32 Norvasc - PO 5 mg DAILY CHRISTOPHE Administration Enoxaparin Sodium 40 mg 12/02/18 19:00 12/03/18 09:32 Lovenox - SQ 40 mg DAILY CHRISTOPHE Administration Fentanyl 50 mcg 12/02/18 13:46 Sublimaze Injection - IVPUSH [id number] PRN PAIN-PACU ORDER X 4 DOSES ONLY Folic Acid 1 mg 12/02/18 19:00 12/03/18 09:33 Folic Acid - PO 1 mg DAILY CHRISTOPHE Administration Multivitamins/Minerals/Vitamin C 1 tab 12/02/18 19:00 12/03/18 09:33 Tab-A-Vit - PO 1 tab DAILY CHRISTOPHE Administration Oxycodone HCl 5 mg 12/02/18 13:46 Roxicodone - PO Q6H PRN PAIN 1-5 Oxycodone HCl 10 mg 12/02/18 13:46 Roxicodone - PO Q6H PRN PAIN 6-10 Thiamine HCl 100 mg 12/02/18 19:00 12/03/18 09:34 Vitamin B1 - PO 100 mg DAILY CHRISTOPHE Administration Laboratory Results - last 24 hr 12/03/18 12/03/18 12/03/18 06:00 06:50 06:50 WBC 14.9 H RBC 5.01 Hgb 13.8 Hct 42.8 MCV 85.4 MCH 27.6 MCHC 32.4 RDW 13.7 Plt Count 173 MPV 9.8 Absolute Neuts (auto) 11.3 H Neutrophils % 75.7 Lymphocytes % 15.4 D Monocytes % 8.7 D Eosinophils % 0.0 D Basophils % 0.2 Nucleated RBC % 0 Sodium 142 Potassium 3.8 Chloride 106 Carbon Dioxide 28 Anion Gap 8 BUN 10 Creatinine 0.7 Creat Clearance w eGFR 116.24 Random Glucose 120 H Hemoglobin A1c % 6.0 Calcium 8.8 Phosphorus 2.9 Magnesium 2.6 H Total Bilirubin 0.6 AST 31 ALT 60 Alkaline Phosphatase 98 Total Protein 7.8 Albumin 3.5 ASSESSMENT/PLAN: 58 year old male with history of alcohol excess, no significant PMH, presented with RLE pain s/p mechanical fall, found to have bimalleolar fracture. 1. R Bi-malleolar fracture s/p closed reduction in ED, currently POD 1 s/p ORIF. Comfortable post-op. Mobilizing well with crutches. Clear for discharge as per Ortho. Referred to out-patient PT. 2. Elevated Tramsaminases sec to alcohol excess, possible Alcoholic Hepatitis - resolved. 3. History of Alcohol Excess - Counselled. No evidence of alcohol withdrawal. Referred to out-patient Alcohol cessation program. 4. HTN - BP improved on Norvasc. Recommend Norvasc on discharge with PCP follow up for BP monitoring. Medically Stable for discharge.
== END 2018-12-03 14:55 | disposition home or self-care (01) | DRG 313 ==
LOC: JER 11:13 → JERBED 14:56 → J6S 16:54
PROVIDERS: ADMIT Internal Medicine
PROC: 0QSG04Z Reposition Right Tibia with Internal Fixation Device, Open Approach (ICD-10-PCS; principal; 2018-12-02 13:00)
DX: S82.841A Displaced bimalleolar fracture of right lower leg, initial encounter for closed fracture (principal); I10 Essential (primary) hypertension; F10.10 Alcohol abuse, uncomplicated; W10.8XXA Fall (on) (from) other stairs and steps, initial encounter; Y92.098 Other place in other non-institutional residence as the place of occurrence of the external cause; E83.39 Other disorders of phosphorus metabolism; K70.10 Alcoholic hepatitis without ascites
CPT/HCPCS: 36415; 73610-TC-RT-FY; 73630-TC-RT-FY; 76000-TC-FY; 80048; 80053; 83036; 83735; 84100; 85025; 85027; 85610; 85730; 86850; 86900; 86901; 93005; 93010; 94010; 94760; 97116-GP; 97161-GP; 99282-25; J7030